=== PATIENT | female | born 1975 | race African-American/Black ===

== ENCOUNTER 2018-11-23 10:04 | Outpatient (CLI) | payer OTHER ==
[~2018-11-23] VITALS: Ht 165.1 cm; Wt 97.5 kg
[2018-11-23 10:43] VITALS: BP 144/76
[2018-11-23] MEDS ORDERED: ASPIRIN EC81 MG ORAL (10:45)
[2018-11-23] MEDS ORDERED: CARAFATE1 G1 ORAL (10:45)
[2018-11-23] MEDS ORDERED: HYDROCHLOROTHIA25 MG ORAL (10:45)
[2018-11-23] MEDS ORDERED: PANTOPRAZOLE SO40 MG ORAL (10:45)
--- NOTE | 2018-11-23 16:31 | GI Initial Consult Note ---
History of Present Illness General Date patient seen: Nov 23, 2018 Time patient seen: 16:25 Referring physician: HMO Reason for Consultation: Abdominal pain Present Illness HPI This is a 43-year-old female patient presents today with right-sided abdominal pain. Addition the patient has complaint of mild constipation and abdominal bloating. The patient states that she had a recent colonoscopy back in 2017 which was normal. The patient had a recent emergency room visit back in September 2018 in which she had an abdominal ultrasound performed, mainly unremarkable. Patient also had an abdominal pelvis CT performed and noted with a 3.5 cm cystic mass in the right adnexal region. Patient denies any nausea or vomiting or diarrhea. Denies any unintentional weight loss or changes in dietary habits. No signs of abuse or neglect. Patient is not fall risk. Home Meds Reported Medications Hydrochlorothiazide* (HYDROCHLOROTHIAZIDE*) 25 Mg Tablet, 25 MG ORAL DAILY, TAB 11/23/18 Aspirin Ec* (ASPIRIN EC*) 81 Mg Tablet.dr, 81 MG ORAL DAILY, TAB 11/23/18 Sucralfate* (CARAFATE*) 1 Gm Tablet, 1 GM ORAL BID, TAB 11/23/18 Pantoprazole* (PANTOPRAZOLE*) 40 Mg Tablet.dr, 40 MG ORAL DAILY, TAB 11/23/18 Med list reviewed/reconciled: Yes Allergies: Coded Allergies: No Known Allergies (Unverified , 11/23/18) Patient History History Provided By: Patient, Medical Record [facility] Narrative Hypertension Past surgical history Hysterectomy Social History: Reports: smoking - 4 cigarettes a day, alcohol use - Social drinker Review of Systems All Other Systems: negative except mentioned in HPI Physical Exam Vital Signs Date Time Temp Pulse Resp B/P (MAP) Pulse Ox O2 Delivery O2 Flow Rate FiO2 11/23/18 10:43 97.8 58 16 144/76 97 Sp02 EP Interpretation: reviewed, normal General Appearance: well appearing, no apparent distress, alert Head: normocephalic EENT: PERRL/EOMI, normal ENT inspection Neck: supple Respiratory: normal breath sounds, no respiratory distress Cardiovascular: normal rate Gastrointestinal: normal inspection, non tender, soft, normal bowel sounds, non -distended Rectal: deferred Genitourinary: no CVA tenderness Musculoskeletal: normal inspection, back normal Neurologic: normal inspection, alert, oriented x3, responsive Psychiatric: normal inspection, judgement/insight normal, memory normal Skin: normal inspection, normal color, no rash, warm/dry, palpation normal, well hydrated Lymphatic: normal inspection, no adenopathy GI: Plan Problems: (1) Abdominal pain (2) Abdominal bloating (3) Constipation (4) History of colonoscopy (5) Hypertension (6) Peptic ulcer disease (7) Small intestinal bacterial overgrowth Plan Recent colonoscopy September 2018, unremarkable September 2018 negative abdominal ultrasound September [address], 3.5 cm cystic mass in the right adnexal region EGDto be scheduled pending PA, will contact patient. - NPO @ [place] day prior procedure explained. prescribed Movantik for constipation prescribed Xifaxan for abdominal bloating Will follow with additional recs post procedure. Seen with Dr. Valdes. Thank you for this patient referral. The patient was seen and examined at bedside and all new and available data was reviewed in the patients chart. I agree with the above findings, impression and plan. (Patient seen earlier today. Signature stamp does not reflect patient encounter time.). - MD Chel ClarkCopper Queen Community HospitalGunnar [facility] [employer] Nov 23, 2018 16:31
== END 2018-11-23 10:34 | disposition home or self-care (01) ==
LOC: PAN 10:04
DX: R10.9 Unspecified abdominal pain (principal); K59.00 Constipation, unspecified; R14.0 Abdominal distension (gaseous); I10 Essential (primary) hypertension; K27.9 Peptic ulcer, site unspecified, unspecified as acute or chronic, without hemorrhage or perforation; A04.9 Bacterial intestinal infection, unspecified; N83.8 Other noninflammatory disorders of ovary, fallopian tube and broad ligament
CPT/HCPCS: 99202